=== PATIENT | male | born 1980 | race Two or more races ===

== ENCOUNTER 2017-09-07 11:56 | Emergency (ER) | payer MEDICAID ==
[2017-09-07 11:59] VITALS: BP 127/77; PULSE 95; RESP 20; TEMP 99; O2SAT 98
--- NOTE | 2017-09-07 13:26 | PD ---
HPI Chief Complaint: Laceration/Skin Injury Time Seen by Provider: 12:54 Travel History International Travel<30 days: No Contact w/Intl Traveler<30days: No Traveled to known affect area: No History of Present Illness HPI 37-year-old male presents to the emergency room for evaluation of a tongue laceration. Patient got hit in the face with an 8 inch pipe at work. He went to an urgent care center but they recommended he come to the emergency room because of the extent of the laceration. He also bit his lip but denies any other injuries. Last tetanus was one year ago. Denies chronic medical conditions. Minimal pain and bleeding. PFSH Social History Tobacco Use: No Allergies-Medications (Allergen,Severity, Reaction): Coded Allergies: No Known Allergies (Unverified , 09/07/17) Reported Meds & Prescriptions Reported Meds & Active Scripts Active No Active Prescriptions or Reported Medications Review of Systems Except as stated in HPI: all other systems reviewed are Neg Physical Exam Narrative GENERAL: Well-nourished, well-developed male in no acute distress. Afebrile. Ambulatory. SKIN: Focused skin assessment warm/dry. HEAD: Normocephalic. EYES: No scleral icterus. No injection or drainage. NECK: Supple, trachea midline. No JVD or lymphadenopathy. ENT: Mucosa pink and moist. There is a 2.5 cm superficial laceration on the anterior aspect of the tongue. It is not through and through. There is a small puncture wound on the bottom of the tongue that is noncommunicating. There is a small contusion on the lip but no opening. No erythema or exudates. No uvular edema. No uvular, palatal, or tonsillar deviation. Airway patent. CARDIOVASCULAR: Regular rate and rhythm without murmurs, gallops, or rubs. RESPIRATORY: Breath sounds equal bilaterally. No accessory muscle use. Data Data Last Documented VS Vital Signs Date Time Temp Pulse Resp B/P (MAP) Pulse Ox O2 Delivery O2 Flow Rate FiO2 09/07/17 11:59 99.0 95 20 127/77 (94) 98 Room Air MDM Medical Decision Making Medical Screen Exam Complete: Yes Emergency Medical Condition: Yes Medical Record Reviewed: Yes Differential Diagnosis Laceration, contusion, abrasion Narrative Course 37-year-old male presents to the emergency room for evaluation of tongue laceration. Patient hit in the face with an 8 inch in diameter pipe and accidentally bit his tongue. Tetanus is up-to-date. Physical exam reveals a 2.5 cm superficial laceration on the anterior aspect of the tongue. It is not through and through. There is a small puncture wound on the bottom of the tongue that is noncommunicating. There is a small contusion on the lip but no opening. Wound was irrigated with Betadine. Patient was given the option for lidocaine given extent of wound but declined. Laceration was repaired, see procedure note for details. Patient discharged with prescription for amoxicillin and told to follow up with primary care physician or return for worsening symptoms. He understands and agrees to plan. Procedures Procedure Narrative LACERATION LOCATION: Anterior tongue LENGTH: 2.5 cm NUMBER OF STITCHES/GERONIMO: 2 simple interrupted REPAIR: The area of the laceration was prepped with Betadine. The wound was copiously irrigated and explored without evidence of foreign body, tendon injury or neurovascular injury. The wound was closed using 5-0 Vicryl. This was a single layer repair. A sterile dressing was applied. The patient was advised to keep the dressing clean and dry. Patient tolerated the procedure well. Diagnosis Primary Impression: Tongue laceration Qualified Codes: S01.512A - Laceration without foreign body of oral cavity, initial encounter Additional Instructions: Rinse mouth out with water every time you eat. Avoid negative suction such as straws or sucking. Avoid spicy or salty food. Sutures do not need to be removed. Antibiotics as directed, until gone. Follow-up with a primary care physician. Return to the emergency room for worsening symptoms. Med/Other Pt SpecificInfo: Prescription(s) given Scripts No Active Prescriptions or Reported Meds Disposition: 01 DISCHARGE HOME Condition: Stable Korina Stinson Sep 07, 2017 13:26
[2017-09-07] MEDS ORDERED: AMOX500T PO (13:39)
== END 2017-09-07 13:42 | disposition home or self-care (01) ==
LOC: NEPK 11:56
DX: S01.512A Laceration without foreign body of oral cavity, initial encounter (principal); S00.531A Contusion of lip, initial encounter; W22.8XXA Striking against or struck by other objects, initial encounter; Y99.0 Civilian activity done for income or pay
CPT/HCPCS: 12011